=== PATIENT | female | born 1985 | race African-American/Black ===

== ENCOUNTER 2018-05-24 13:48 | Emergency (ER) | payer OTHER ==
[~2018-05-24] VITALS: Ht 170.2 cm; Wt 129.0 kg
[~2018-05-24 13:48] MED LIST: LANTUS 10100 UNITS/ SC; LANTUS 3 M100 UNITS/ SC; LANTUS 3 M100 UNITS1 SC; LISINOPRIL; METFORMIN; NEUTRA-PHOS,1 PACKET PO; NOHOMEMEDS; NOVOLOG 10100 UNITS/ SC; NOVOLOG PE100 UNITS/ SC; PEN NEEDLE1 EA13 MC; Vitamin D, Drisdol PO
[2018-05-24 14:44] LABS: HEMATOCRIT 33.5 % (36.0-46.0); HEMOGLOBIN 11.5 G/DL (11.9-15.5); MCH 27.9 PG (29.0-34.0); MCHC 34.3 G/DL (30.0-36.0); MCV 81.3 FL (83-99); PLATELET COUNT 265 K/uL (156-360); RBC DIS.WIDTH-CV 13.5 % (11.8-14.6); RBC DIS.WIDTH-SD 39.8 % (39-53); RED BLOOD COUNT 4.12 M/uL (3.80-5.20); WHITE BLOOD COUNT 6.8 K/uL (4.1-10.2)
[2018-05-24 14:55] LABS: ALBUMIN 3.9 g/dL (3.2-4.8); CHLORIDE 105 mEq/L (99-109); POTASSIUM 3.5 mEq/L (3.7-5.4); SODIUM 138 mEq/L (136-147)
[2018-05-24 14:57] LABS: GLUCOSE 284 mg/dL (70-99); TOTAL PROTEIN 7.7 g/dL (6.4-8.3)
[2018-05-24 14:59] LABS: TOTAL BILIRUBIN 0.4 mg/dL (0.0-1.0)
[2018-05-24 15:01] LABS: ALKALINE PHOSPHATASE 76 IU/L (3-129); CREATININE 0.8 mg/dL (0.6-1.3); GFR ESTIMATE (CALCULATED) > 59 mL/min/
[2018-05-24 15:02] LABS: AST (GOT) 13 IU/L (2-34); UREA NITROGEN (BUN) 8 mg/dL (9-23)
[2018-05-24 15:04] LABS: ALT (GPT) 9 IU/L (3-49)
[2018-05-24 15:33] LABS: QUANTITATIVE HCG 36607.9 MIU/ML
[2018-05-24 16:53] LABS: APPEARANCE CLEAR ((CLEAR)); BILIRUBIN NEGATIVE; BLOOD NEGATIVE; COLOR YELLOW ((YELLOW)); GLUCOSE (STRIP) >=500; KETONES NEGATIVE; LEUKOCYTES NEGATIVE; NITRITE NEGATIVE; PROTEIN (STRIP) 30; SPECIFIC GRAVITY 1.027 (1.000-1.030); UCUL ADDED? NO
[2018-05-24 17:59] VITALS: BP 129/88
== END 2018-05-24 18:00 | disposition home or self-care (01) ==
LOC: EME 13:48
PROVIDERS: Nurse Practitioner Family
DX: O26.893 Other specified pregnancy related conditions, third trimester (principal); R51 Headache; O24.311 Unspecified pre-existing diabetes mellitus in pregnancy, first trimester; E11.9 Type 2 diabetes mellitus without complications; Z79.4 Long term (current) use of insulin; O99.611 Diseases of the digestive system complicating pregnancy, first trimester; K21.9 Gastro-esophageal reflux disease without esophagitis; Z3A.00 Weeks of gestation of pregnancy not specified; Z88.0 Allergy status to penicillin; Z86.69 Personal history of other diseases of the nervous system and sense organs
CPT/HCPCS: 80053; 81003; 84702; 85027; 99281; 99284; J7030

== ENCOUNTER 2018-06-05 13:05 | Emergency (ER) | payer OTHER ==
[~2018-06-05] VITALS: Ht 170.2 cm; Wt 127.8 kg
[2018-06-05 13:12] VITALS: BP 163/100
[2018-06-05 13:27] LABS: HEMATOCRIT 31.8 % (36.0-46.0); HEMOGLOBIN 10.8 G/DL (11.9-15.5); MCH 27.8 PG (29.0-34.0); PLATELET COUNT 317 K/uL (156-360); RBC DIS.WIDTH-CV 13.9 % (11.8-14.6); RBC DIS.WIDTH-SD 40.6 % (39-53); RED BLOOD COUNT 3.88 M/uL (3.80-5.20)
[2018-06-05 13:39] LABS: CHLORIDE 107 mEq/L (99-109); POTASSIUM 3.7 mEq/L (3.7-5.4); SODIUM 137 mEq/L (136-147)
[2018-06-05 13:40] LABS: GLUCOSE 157 mg/dL (70-99)
[2018-06-05 13:44] LABS: CREATININE 0.7 mg/dL (0.6-1.3); GFR ESTIMATE (CALCULATED) > 59 mL/min/
[2018-06-05 13:45] LABS: UREA NITROGEN (BUN) 7 mg/dL (9-23)
[2018-06-05 13:54] LABS: TROP-I INTERPRETATION NEGATIVE; TROPONIN-I < 0.01 ng/mL (0.0-0.30)
[2018-06-05 14:55] LABS: ALBUMIN 3.8 g/dL (3.2-4.8)
[2018-06-05 14:58] LABS: TOTAL PROTEIN 7.7 g/dL (6.4-8.3)
[2018-06-05 15:00] LABS: TOTAL BILIRUBIN 0.5 mg/dL (0.0-1.0)
[2018-06-05 15:01] LABS: ALKALINE PHOSPHATASE 79 IU/L (3-129)
[2018-06-05 15:03] LABS: AST (GOT) 10 IU/L (2-34); DIRECT BILIRUBIN 0.2 mg/dL (0.0-0.3)
[2018-06-05 15:04] LABS: ALT (GPT) 8 IU/L (3-49)
== END 2018-06-05 15:25 | disposition left against medical advice (07) ==
LOC: EME 13:05
PROVIDERS: Physician Assistant
DX: O26.892 Other specified pregnancy related conditions, second trimester (principal); R07.9 Chest pain, unspecified; Z3A.14 14 weeks gestation of pregnancy; O24.912 Unspecified diabetes mellitus in pregnancy, second trimester; O99.612 Diseases of the digestive system complicating pregnancy, second trimester; K21.9 Gastro-esophageal reflux disease without esophagitis; Z79.4 Long term (current) use of insulin; Z88.0 Allergy status to penicillin
CPT/HCPCS: 71046; 80048; 80076; 84484; 85027; 85379; 93005; 99281; 99284